=== PATIENT | male | born 1965 | race African-American/Black ===

== ENCOUNTER 2016-07-29 11:27 | Inpatient (IN) | payer OTHER ==
[2016-07-29 11:31] VITALS: BMI 28.7
--- NOTE | 2016-07-29 13:43 | HP ---
COWS - Scale Resting Pulse: 0= [place] 80 or Below Sweatin= Chills/Flushing Restless Observation: 1= Difficult to Sit Still Pupil Size: 0= Normal to Room Light Bone or Joint Aches: 2= Severe Diffuse Aches Runny Nose/ Eye Tearin= Nasal Congestion GI Upset > 30mins: 2= Nausea/Diarrhea Tremor Observation: 2= Slight Tremor Visible Yawning Observation: 2= >3x During Session Anxiety or Irritability: 2=Irritable/Anxious Goose Flesh Skin: 0=Smooth Skin COWS Score: 13 CIWA Score - CIWA Score Nausea/Vomitin-No Nausea/No Vomiting Muscle Tremors: 4-Moderate,w/Arms Extend Anxiety: 3 Agitation: 4-Moderately Restless Paroxysmal Sweats: 3 Orientation: 0-Oriented Tacttile Disturbances: 0-None Auditory Disturbances: 0-None Visual Disturbances: 0-None Headache: 0-None Present CIWA-Ar Total Score: 14 Admission ROS S - HPI Chief Complaint: I am to detox. Allergies/Adverse Reactions: Allergies Allergy/AdvReac Type Severity Reaction Status Date / Time No Known Allergies Allergy Verified 07/29/16 13:13 History of Present Illness: Pt is a 50yr old male with a history of alcohol and heroin dependence seeking detox for treatment. pt has a h/o blood clot in right side of neck back in 2009; pt was hospitalized at [facility] pt was then regulated and placed on coumadin. NOw on 06/30/16 pt found a hard lump on left abdomen went to ED, his INR was " out of wack" not WNL, Heparin drip started to regulate INR pt again placed on on coumadin 10mg Qhs. pt has own MD for follow up on INR levels at [facility]. Dr. Raya Exam Limitations: No Limitations - Ebola screening Have you traveled outside of the country in the last 21 days: No Have you had contact with anyone from an Ebola affected area: No Have you been sick,other than usual withdrawal symptoms: No Do you have a fever: No - Review of Systems Constitutional: Chills, Diaphoresis, Night Sweats EENT: reports: No Symptoms Reported Respiratory: reports: No Symptoms reported Cardiac: reports: No Symptoms Reported GI: reports: Poor Appetite, Poor Fluid Intake : reports: No Symptoms Reported Musculoskeletal: reports: No Symptoms Reported (right knee), Joint Pain Integumentary: reports: Flushing Neuro: reports: Tingling, Tremors Endocrine: reports: Excessive Sweating, Flushing, Intolerance to Cold, Intolerance to Heat Hematology: reports: No Symptoms Reported, Blood Clots (to right side of neck on 2009; on coumadin 10mg qhs), Other (receiving coumadin 10mg daily.) Psychiatric: reports: Judgement Intact, Mood/Affect Appropiate, Orientated x3, Agitated, Anxious Other Systems: Reviewed and Negative Patient History - Patient Medical History Hx Asthma: No Hx Chronic Obstructive Pulmonary Disease (COPD): No Hx Cancer: No Hx Cardiac Disorders: No Hx Congestive Heart Failure: No Hx Hypertension: No Hx Hypercholesterolemia: No Hx Pacemaker: No HX Cerebrovascular Accident: No Hx Seizures: No Hx Dementia: No Hx Diabetes: No Hx Gastrointestinal Disorders: No Hx Liver Disease: No Hx Genitourinary Disorders: No Hx Sexually Transmitted Disorders: No Hx Renal Disease (ESRD): No Hx Thyroid Disease: No Hx Human Immunodeficiency Virus (HIV): No (negative) Hx Hepatitis C: No (negative) Hx Depression: No Hx Suicide Attempt: No Hx Bipolar Disorder: No Hx Schizophrenia: No Other Medical History: anxiety - Patient Surgical History Past Surgical History: Yes Hx Neurologic Surgery: No Hx Cataract Extraction: No Hx Cardiac Surgery: No Hx Lung Surgery: No Hx Breast Surgery: No Hx Breast Biopsy: No Hx Abdominal Surgery: No Hx Appendectomy: No Hx Cholecystectomy: No Hx Genitourinary Surgery: No Hx Section: No Hx Orthopedic Surgery: No Anesthesia Reaction: No - PPD History Previous Implant?: Yes Documented Results: Negative w/o proof Date: 09/18/14 PPD to be Administered?: Yes - Reproductive History Patient is a Female of Child Bearing Age (11 -55 yrs old): No - Smoking Cessation Smoking history: Current every day smoker Have you smoked in the past 12 months: Yes Aproximately how many cigarettes per day: 20 Hx Chewing Tobacco Use: No Initiated information on smoking cessation: Yes 'Breaking Loose' booklet given: 07/29/16 - Substance & Tx. History Hx Alcohol Use: Yes Hx Substance Use: Yes Substance Use Type: Alcohol, Heroin Hx Substance Use Treatment: Yes - Substances Abused Alcohol-beer/aliza Route: Oral Frequency: Daily Amount used: 3 (16 oz.)/1/2 pt. Age of first use: 12 Date of Last Use: 07/29/16 Heroin Route: Inhalation Frequency: Daily Amount used: 4 bags daily Age of first use: 23 Date of Last Use: 07/28/16 Family Disease History - Family Disease History Family Disease History: Heart Disease: Mother, Other: Father (DEPENDENT ON ETOH AND ) Admission Physical Exam [facility] - Vital Signs Vital Signs: Vital Signs - 24 hr 07/29/16 11:30 Temperature 97.1 F L Pulse Rate 71 Respiratory 18 Rate Blood Pressure 91/58 - Physical General Appearance: Yes: Appropriately Dressed, Moderate Distress, Tremorous, Irritable, Sweating, Anxious HEENTM: Yes: Normal Voice, Nasal Congestion, Rhinorrhea Respiratory: Yes: Lungs Clear, Normal Breath Sounds, No Respiratory Distress Neck: Yes: No masses,lesions,Nodules Breast: Yes: Within Normal Limits Cardiology: Yes: Regular Rhythm, Regular Rate, S1, S2 Abdominal: Yes: Normal Bowel Sounds, Non Tender, Soft Genitourinary: Yes: Within Normal Limits Back: Yes: Normal Inspection Musculoskeletal: Yes: full range of Motion Extremities: Yes: Normal Capillary Refill, Non-Tender, Tremors Neurological: Yes: Fully Oriented, Alert, Normal Response Integumentary: Yes: Normal Color, Diaphoresis Lymphatic: Yes: Within Normal Limits - Diagnostic (1) Alcohol dependence with uncomplicated withdrawal Current Visit: Yes Status: Chronic (2) Crack cocaine use Current Visit: Yes Status: Chronic (3) Nicotine dependence Current Visit: Yes Status: Chronic Qualifiers: Nicotine product type: cigarettes Substance use status: uncomplicated Qualified Code(s): F17.210 - Nicotine dependence, cigarettes, uncomplicated (4) Opioid dependence with withdrawal Current Visit: Yes Status: Chronic (5) H/O blood clots Current Visit: No Status: Chronic Comment: currently on 10mg of coumadin last INR is 1.5 as per pt Cleared for Admission S - Detox or Rehab [facility] Level of Care: Medically Managed Detox Regimen/Protocol: Methadone/Librium S Breath Alcohol Content Breath Alcohol Content: 0 Urine Drug Screen - Results Drug Screen Negative: No Urine Drug Screen Results: GEORGE-Cocaine, OPI-Opiates
[2016-07-29] MEDS ORDERED: MAG HYDROX/AL HYDROX/SIMETH 30 ML UNIT-DOSE CUP PO PRN (14:02)
[2016-07-29] MEDS ORDERED: diphenhydrAMINE HCL 50 MG CAPSULE PO PRN (14:02)
[2016-07-29] MEDS ORDERED: chlordiazePOXIDE HCL 25 MG CAPSULE PO PRN (14:02)
[2016-07-29] MEDS ORDERED: LOPERAMIDE HCL 2 MG CAPSULE PO PRN (14:02)
[2016-07-29] MEDS ORDERED: MENTHOL/PHENOL 1 EACH UD MM PRN (14:02)
[2016-07-29] MEDS ORDERED: ACETAMINOPHEN 325 MG TABLET (FP) PO PRN (14:02)
[2016-07-29] MEDS ORDERED: P-EPHED 60MG/TRIPROLIDI 2.5MG TABLET PO PRN (14:02)
[2016-07-29] MEDS ORDERED: hydrOXYzine PAMOATE 50 MG CAPSULE (FP) PO PRN (14:02)
[2016-07-29] MEDS ORDERED: MAGNESIUM CITRATE 300 ML BOTTLE PO PRN (14:02)
[2016-07-29] MEDS ORDERED: guaiFENesin/D-METHORPHAN HB 10 ML UNIT-DOSE CUPS PO PRN (14:02)
[2016-07-29] MEDS ORDERED: MAGNESIUM HYDROX 2400MG/30ML ORAL SUSPENSION 30 ML CUP PO PRN (14:02)
[2016-07-29] MEDS ORDERED: chlordiazePOXIDE HCL 25 MG CAPSULE PO ONE (14:10)
[2016-07-29] MEDS ORDERED: METHADONE HCL 10 MG TABLET (FOR DETOX USE ONLY) PO ONE ×2 (14:11→23:00)
[2016-07-29 15:38] LABS: INR 1.54 (0.82-1.09); PROTHROMBIN TIME (PATIENT) 17.1 SEC (9.98-11.88)
--- NOTE | 2016-07-29 15:50 | EKG ---
Test Reason : Blood Pressure : / mmHG Vent. Rate : 056 BPM Atrial Rate : 056 BPM P-R Int : 146 ms QRS Dur : 078 ms QT Int : 420 ms P-R-T Axes : 038 033 035 degrees QTc Int : 405 ms SINUS BRADYCARDIA OTHERWISE NORMAL ECG NO PREVIOUS ECGS AVAILABLE Confirmed by SAIDA GARCIA MD ([id number]) on 07/29/2016 3:50:22 PM Referred By: Confirmed By:SAIDA GARCIA MD
[2016-07-29] MEDS: chlordiazePOXIDE HCL 25 MG CAPSULE PO SCH ×2 (17:27→22:57)
[2016-07-29] MEDS: WARFARIN NA 10 MG TABLET (FP) PO SCH (17:27)
[2016-07-29 20:20] LABS: MCH 28.9 pg (25.7-33.7); MCHC 33.1 g/dl (32.0-35.9); MEAN CELL VOLUME 87.2 fl (80-96); MEAN PLT VOLUME 8.7 fl (7.5-11.1); PLATELET COUNT 230 K/MM3 (134-434); RDW 15.8 % (11.9-15.9); WHITE BLOOD COUNT 5.8 K/mm3 (4.0-10.0)
[2016-07-29 20:46] LABS: ALBUMIN 3.5 g/dl (3.4-5.0); CALCIUM 8.3 mg/dL (8.5-10.1); CREATININE 1.6 mg/dL (0.7-1.3)
[2016-07-29 20:49] LABS: BILIRUBIN,TOTAL 0.7 mg/dL (0.2-1.0); TOT PROT 7.5 g/dl (6.4-8.2)
[2016-07-29 22:36] LABS: URINE APPEARANCE CLEAR; URINE BILIRUBIN NEGATIVE (NEGATIVE); URINE BLOOD NEGATIVE (NEGATIVE); URINE COLOR YELLOW; URINE GLUCOSE (UA) NEGATIVE (NEGATIVE); URINE KETONE NEGATIVE (NEGATIVE); URINE LEUK ESTERASE NEGATIVE (NEGATIVE); URINE NITRITE NEGATIVE (NEGATIVE); URINE UROBILINOGEN 2.0 E.U/dl E.U./dl (0.2-1.0)
[2016-07-29 22:40] LABS: URINE PROTEIN 1+ (NEGATIVE)
[2016-07-29 22:48] LABS: URINE MUCUS FEW; URINE RBC 1 /hpf (0-3); URINE WBC 5 /hpf (3-5)
[2016-07-29] MEDS: THIAMINE HCL 100 MG TABLET (FP) PO SCH (22:57)
[2016-07-30] MEDS: chlordiazePOXIDE HCL 25 MG CAPSULE PO SCH ×4 (05:28→22:34)
[2016-07-30] MEDS ORDERED: METHADONE HCL 10 MG TABLET (FOR DETOX USE ONLY) PO SCH (10:00)
[2016-07-30 10:37] LABS: HIV 1 & 2 AB NEGATIVE; HIV 1 AGp24 NEGATIVE
[2016-07-30] MEDS: PRENATAL VITAMINS W/ FOLIC ACID TABLET (FP) PO SCH (10:39)
--- NOTE | 2016-07-30 14:37 | PN ---
[facility] CIWA - CIWA Score Nausea/Vomitin-Mild Nausea/No Vomiting Muscle Tremors: 4-Moderate,w/Arms Extend Anxiety: 1-Mildly Anxious Agitation: 2 Paroxysmal Sweats: 2 Orientation: 0-Oriented Tacttile Disturbances: 3-Moderate Itch/Numb/Burn Auditory Disturbances: 0-None Visual Disturbances: 1-Very Mild Sensitivity Headache: 0-None Present CIWA-Ar Total Score: 14 S COWS - Scale Resting Pulse: 0= [place] 80 or Below Sweatin= Chills/Flushing Restless Observation: 1= Difficult to Sit Still Pupil Size: 1= Pupils >than Normal Bone or Joint Aches: 1= Mild Discomfort Runny Nose/ Eye Tearin= Nasal Congestion GI Upset > 30mins: 2= Nausea/Diarrhea Tremor Observation of Outstretched Hands: 2= Slight Tremor Visible Yawning Observation: 1= 1-2x During Session Anxiety or Irritability: 2=Irritable/Anxious Goose Flesh Skin: 3=Piloerection COWS Score: 15 [facility] Progress Note (SOAP) Subjective: Diarrhea, Tremors, Fatigue. Objective: PT. A & O X 3. 07/30/16 14:34 Vital Signs Temperature 95.7 F L 07/30/16 13:59 Pulse Rate 80 07/30/16 13:59 Respiratory Rate 20 07/30/16 13:59 Blood Pressure 108/68 07/30/16 13:59 O2 Sat by Pulse Oximetry (%) Laboratory Last Values WBC 5.8 K/mm3 (4.0-10.0) 07/29/16 14:00 RBC 4.72 M/mm3 (4.00-5.60) 07/29/16 14:00 Hgb 13.6 GM/dL (11.7-16.9) 07/29/16 14:00 Hct 41.1 % (35.4-49) 07/29/16 14:00 MCV 87.2 fl (80-96) 07/29/16 14:00 MCHC 33.1 g/dl (32.0-35.9) 07/29/16 14:00 RDW 15.8 % (11.9-15.9) 07/29/16 14:00 Plt Count 230 K/MM3 (134-434) 07/29/16 14:00 MPV 8.7 fl (7.5-11.1) 07/29/16 14:00 INR 1.54 (0.82-1.09) H 07/29/16 14:00 Sodium 139 mmol/L (136-145) 07/29/16 14:00 Potassium 4.0 mmol/L (3.5-5.1) 07/29/16 14:00 Chloride 102 mmol/L (98-107) 07/29/16 14:00 Carbon Dioxide 28 mmol/L (21-32) 07/29/16 14:00 Anion Gap 9 (8-16) 07/29/16 14:00 BUN 16 mg/dL (7-18) 07/29/16 14:00 Creatinine 1.6 mg/dL (0.7-1.3) H 07/29/16 14:00 Creat Clearance w eGFR 45.62 (>60) 07/29/16 14:00 Random Glucose 105 mg/dL (74-106) D 07/29/16 14:00 Calcium 8.3 mg/dL (8.5-10.1) L 07/29/16 14:00 Total Bilirubin 0.7 mg/dL (0.2-1.0) D 07/29/16 14:00 AST 10 U/L (15-37) L 07/29/16 14:00 ALT 21 U/L (12-78) D 07/29/16 14:00 Alkaline Phosphatase 66 U/L (45-117) 07/29/16 14:00 Total Protein 7.5 g/dl (6.4-8.2) 07/29/16 14:00 Albumin 3.5 g/dl (3.4-5.0) 07/29/16 14:00 Urine Color Yellow 07/29/16 22:00 Urine Appearance Clear 07/29/16 22:00 Urine pH 5.0 (5.0-8.0) 07/29/16 22:00 Ur Specific [place] 1.027 (1.001-1.035) 07/29/16 22:00 Urine Protein 1+ (NEGATIVE) H 07/29/16 22:00 Urine Glucose (UA) Negative (NEGATIVE) 07/29/16 22:00 Urine Ketones Negative (NEGATIVE) 07/29/16 22:00 Urine Blood Negative (NEGATIVE) 07/29/16 22:00 Urine Nitrite Negative (NEGATIVE) 07/29/16 22:00 Urine Bilirubin Negative (NEGATIVE) 07/29/16 22:00 Urine Urobilinogen 2.0 e.u/dl E.U./dl (0.2-1.0) 07/29/16 22:00 Ur Leukocyte Esterase Negative (NEGATIVE) 07/29/16 22:00 Urine RBC 1 /hpf (0-3) 07/29/16 22:00 Urine WBC 5 /hpf (3-5) 07/29/16 22:00 Ur Epithelial Cells Rare /hpf (FEW) 07/29/16 22:00 Urine Mucus Few 07/29/16 22:00 RPR Titer Nonreactive (NONREACTIVE) 07/29/16 14:00 HIV 1&2 Antibody Screen Negative 07/29/16 14:00 HIV P24 Antigen Negative 07/29/16 14:00 LABS NOTED. Assessment: 07/30/16 14:35 WITHDRAWAL SYMPTOMS. Plan: CONTINUE DETOX. D/C MAGNESIUM PRN ORDERS. ADVISED PATIENT TO FOLLOW-UP WITH UNBUNDLER / REHAB MEDICAL PROVIDER AFTER DISCHARGE FROM DETOX FOR GENERAL MEDICAL ASSESSMENT AND FOR ANY ABNORMAL ADMISSION LAB VALUES.
--- NOTE | 2016-07-30 15:46 | CONSULT ---
[facility] Psychiatric Consult - Data Date of interview: 07/30/16 Admission source: [facility] Identifying data: Readmission to [facility] for this 50 y/o AA male seeking detox treatment for heroin and cocaine dependence.Patient is single,a father of two,homeless,unemployed and supported on food stamps. Substance Abuse History: Smoking Cessation. Smoking history: Current every day smoker. Have you smoked in the past 12 months: Yes. Aproximately how many cigarettes per day: 20. Hx Chewing Tobacco Use: No. Initiated information on smoking cessation: Yes. 'Breaking Loose' booklet given: 07/29/16. - Substance & Tx. History. Hx Alcohol Use: Yes. Hx Substance Use: Yes. Substance Use Type : Alcohol, Heroin. Hx Substance Use Treatment: Yes. - Substances Abused. Alcohol-beer/aliza. Route: Oral. Frequency: Daily. Amount used: 3 (16 oz.)/1 /2 pt. Age of first use: 12. Date of Last Use: 07/29/16. Heroin. Route: Inhalation. Frequency: Daily. Amount used: 4 bags daily. Age of first use: 23. Date of Last Use: 07/28/16. Confirmed by patient. Medical History: History of pulmonary embolism.On coumadin. Psychiatric History: Patient denies history of psychiatric hospitalizations.Diagnosed with MDD.Prescribed prozac 20 mg/day and vistaril.Mr Maldonado is followed at the [facility] outpatient [facility] program in [facility].No history of suicide attempts. Physical/Sexual Abuse/Trauma History: Patient denies. Additional Comment: Urine Drug Screen Results: GEORGE-Cocaine, OPI-Opiates.Noted. Mental Status Exam - Mental Status Exam Alert and Oriented to: Time, Place, Person Cognitive Function: Good Patient Appearance: Well Groomed Mood: Withdrawn, Anxious, Apprehensive Affect: Mood Congruent Patient Behavior: Fatigued, Appropriate, Cooperative Speech Pattern: Clear Voice Loudness: Normal Thought Process: Goal Oriented Thought Disorder: Not Present Hallucinations: Denies Suicidal Ideation: Denies Homicidal Ideation: Denies Insight/Judgement: Fair Appetite: Fair Muscle strength/Tone: Normal Gait/Station: Normal Psychiatric Findings - Problem List (Graff 1, 2,3) (1) Alcohol dependence with uncomplicated withdrawal Current Visit: Yes Status: Acute (2) Opioid dependence with withdrawal Current Visit: Yes Status: Acute (3) Cocaine dependence Current Visit: Yes Status: Acute (4) Nicotine dependence Current Visit: Yes Status: Acute Qualifiers: Nicotine product type: cigarettes Substance use status: uncomplicated Qualified Code(s): F17.210 - Nicotine dependence, cigarettes, uncomplicated (5) Adjustment disorder with depressed mood Current Visit: Yes Status: Acute (6) Substance induced mood disorder Current Visit: Yes Status: Acute (7) H/O blood clots Current Visit: Yes Status: Chronic Comment: currently on 10mg of coumadin last INR is 1.5 as per pt - Initial Treatment Plan Initial Treatment Plan: Psychoeducation.Detoxification.Medications : prozac 20 mg po daily.Side effects/benefits discussed with the patient.He agrees with this careplan.Observation.INR will be monitored.
[2016-07-30] MEDS: WARFARIN NA 10 MG TABLET (FP) PO SCH (17:43)
[2016-07-30] MEDS: THIAMINE HCL 100 MG TABLET (FP) PO SCH (22:34)
[2016-07-31] MEDS: chlordiazePOXIDE HCL 25 MG CAPSULE PO SCH ×2 (05:56→10:32)
[2016-07-31] MEDS: FLUoxetine HCL 20 MG CAPSULE (FP) PO SCH (10:32)
[2016-07-31] MEDS: METHADONE HCL 5 MG TABLET (FOR DETOX USE ONLY) PO SCH (10:32)
[2016-07-31] MEDS: PRENATAL VITAMINS W/ FOLIC ACID TABLET (FP) PO SCH (10:32)
--- NOTE | 2016-07-31 16:14 | PN ---
[facility] CIWA - CIWA Score Nausea/Vomitin-Mild Nausea/No Vomiting Muscle Tremors: 4-Moderate,w/Arms Extend Anxiety: 3 Agitation: 1-Slight > Activity Paroxysmal Sweats: 2 Orientation: 1-Uncertain about Date Tacttile Disturbances: 2-Mild Itch/Numbness/Burn Auditory Disturbances: 0-None Visual Disturbances: 3-Moderate Sensitivity Headache: 0-None Present CIWA-Ar Total Score: 17 [facility] COWS - Scale Resting Pulse: 0= [place] 80 or Below Sweatin= Chills/Flushing Restless Observation: 0= Sits Still Pupil Size: 0= Normal to Room Light Bone or Joint Aches: 2= Severe Diffuse Aches Runny Nose/ Eye Tearin= Runny Nose/Eyes GI Upset > 30mins: 0= None Tremor Observation of Outstretched Hands: 2= Slight Tremor Visible Yawning Observation: 1= 1-2x During Session Anxiety or Irritability: 2=Irritable/Anxious Goose Flesh Skin: 3=Piloerection COWS Score: 13 S Progress Note (SOAP) Subjective: Fatigue, Sweating, Tremors. Objective: PT. A & O X 2 (DISORIENTED ABOUT DAY / DATE). 07/31/16 16:11 Vital Signs Temperature 98 F 07/31/16 13:33 Pulse Rate 67 07/31/16 13:33 Respiratory Rate 20 07/31/16 13:33 Blood Pressure 103/63 07/31/16 13:33 O2 Sat by Pulse Oximetry (%) Laboratory Last Values WBC 5.8 K/mm3 (4.0-10.0) 07/29/16 14:00 RBC 4.72 M/mm3 (4.00-5.60) 07/29/16 14:00 Hgb 13.6 GM/dL (11.7-16.9) 07/29/16 14:00 Hct 41.1 % (35.4-49) 07/29/16 14:00 MCV 87.2 fl (80-96) 07/29/16 14:00 MCHC 33.1 g/dl (32.0-35.9) 07/29/16 14:00 RDW 15.8 % (11.9-15.9) 07/29/16 14:00 Plt Count 230 K/MM3 (134-434) 07/29/16 14:00 MPV 8.7 fl (7.5-11.1) 07/29/16 14:00 INR 1.54 (0.82-1.09) H 07/29/16 14:00 Sodium 139 mmol/L (136-145) 07/29/16 14:00 Potassium 4.0 mmol/L (3.5-5.1) 07/29/16 14:00 Chloride 102 mmol/L (98-107) 07/29/16 14:00 Carbon Dioxide 28 mmol/L (21-32) 07/29/16 14:00 Anion Gap 9 (8-16) 07/29/16 14:00 BUN 16 mg/dL (7-18) 07/29/16 14:00 Creatinine 1.6 mg/dL (0.7-1.3) H 07/29/16 14:00 Creat Clearance w eGFR 45.62 (>60) 07/29/16 14:00 Random Glucose 105 mg/dL (74-106) D 07/29/16 14:00 Calcium 8.3 mg/dL (8.5-10.1) L 07/29/16 14:00 Total Bilirubin 0.7 mg/dL (0.2-1.0) D 07/29/16 14:00 AST 10 U/L (15-37) L 07/29/16 14:00 ALT 21 U/L (12-78) D 07/29/16 14:00 Alkaline Phosphatase 66 U/L (45-117) 07/29/16 14:00 Total Protein 7.5 g/dl (6.4-8.2) 07/29/16 14:00 Albumin 3.5 g/dl (3.4-5.0) 07/29/16 14:00 Urine Color Yellow 07/29/16 22:00 Urine Appearance Clear 07/29/16 22:00 Urine pH 5.0 (5.0-8.0) 07/29/16 22:00 Ur Specific [place] 1.027 (1.001-1.035) 07/29/16 22:00 Urine Protein 1+ (NEGATIVE) H 07/29/16 22:00 Urine Glucose (UA) Negative (NEGATIVE) 07/29/16 22:00 Urine Ketones Negative (NEGATIVE) 07/29/16 22:00 Urine Blood Negative (NEGATIVE) 07/29/16 22:00 Urine Nitrite Negative (NEGATIVE) 07/29/16 22:00 Urine Bilirubin Negative (NEGATIVE) 07/29/16 22:00 Urine Urobilinogen 2.0 e.u/dl E.U./dl (0.2-1.0) 07/29/16 22:00 Ur Leukocyte Esterase Negative (NEGATIVE) 07/29/16 22:00 Urine RBC 1 /hpf (0-3) 07/29/16 22:00 Urine WBC 5 /hpf (3-5) 07/29/16 22:00 Ur Epithelial Cells Rare /hpf (FEW) 07/29/16 22:00 Urine Mucus Few 07/29/16 22:00 RPR Titer Nonreactive (NONREACTIVE) 07/29/16 14:00 HIV 1&2 Antibody Screen Negative 07/29/16 14:00 HIV P24 Antigen Negative 07/29/16 14:00 LABS NOTED. Assessment: 07/31/16 16:13 WITHDRAWAL SYMPTOMS. Plan: CONTINUE DETOX. ADVISED PATIENT TO FOLLOW-UP WITH CONSTRUCTION EQUIPMENT TECHNICIAN / REHAB MEDICAL PROVIDER AFTER DISCHARGE FROM DETOX FOR GENERAL MEDICAL ASSESSMENT AND FOR ABNORMAL ADMISSION LAB VALUES.
[2016-07-31] MEDS: WARFARIN NA 10 MG TABLET (FP) PO SCH (17:51)
[2016-07-31] MEDS: chlordiazePOXIDE 5 MG CAPSULE PO SCH ×2 (17:51→22:36)
[2016-07-31] MEDS: THIAMINE HCL 100 MG TABLET (FP) PO SCH (22:36)
[2016-07-31] MEDS: NICOTINE POLACRILEX 4 MG GUM BUC PRN (22:42)
[2016-08-01] MEDS: chlordiazePOXIDE 5 MG CAPSULE PO SCH ×2 (06:03→10:35)
[2016-08-01] MEDS: FLUoxetine HCL 20 MG CAPSULE (FP) PO SCH (10:35)
[2016-08-01] MEDS: PRENATAL VITAMINS W/ FOLIC ACID TABLET (FP) PO SCH (10:35)
[2016-08-01] MEDS: METHADONE HCL 5 MG TABLET (FOR DETOX USE ONLY) PO SCH (10:36)
--- NOTE | 2016-08-01 16:42 | PN ---
[facility] Progress Note (SOAP) Subjective: Anxious, sweating, restless, interrupted sleep Objective: 08/01/16 16:39 Last Vital Signs Temp Pulse Resp BP Pulse Ox 98 F 74 20 109/69 08/01/16 14:14 08/01/16 14:14 08/01/16 14:14 08/01/16 14:14 Laboratory Tests 07/29/16 07/29/16 07/29/16 14:00 14:00 14:00 WBC 5.8 RBC 4.72 Hgb 13.6 Hct 41.1 MCV 87.2 MCHC 33.1 RDW 15.8 Plt Count 230 MPV 8.7 INR Sodium 139 Potassium 4.0 Chloride 102 Carbon Dioxide 28 Anion Gap 9 BUN 16 Creatinine 1.6 H Creat Clearance w eGFR 45.62 Random Glucose 105 D Calcium 8.3 L Total Bilirubin 0.7 D AST 10 L ALT 21 D Alkaline Phosphatase 66 Total Protein 7.5 Albumin 3.5 Urine Color Urine Appearance Urine pH Ur Specific [place] Urine Protein Urine Glucose (UA) Urine Ketones Urine Blood Urine Nitrite Urine Bilirubin Urine Urobilinogen Ur Leukocyte Esterase Urine RBC Urine WBC Ur Epithelial Cells Urine Mucus RPR Titer HIV 1&2 Antibody Screen Negative HIV P24 Antigen Negative 07/29/16 07/29/16 07/29/16 14:00 14:00 22:00 WBC RBC Hgb Hct MCV MCHC RDW Plt Count MPV INR 1.54 H Sodium Potassium Chloride Carbon Dioxide Anion Gap BUN Creatinine Creat Clearance w eGFR Random Glucose Calcium Total Bilirubin AST ALT Alkaline Phosphatase Total Protein Albumin Urine Color Yellow Urine Appearance Clear Urine pH 5.0 Ur Specific [place] 1.027 Urine Protein 1+ H Urine Glucose (UA) Negative Urine Ketones Negative Urine Blood Negative Urine Nitrite Negative Urine Bilirubin Negative Urine Urobilinogen 2.0 e.u/dl Ur Leukocyte Esterase Negative Urine RBC 1 Urine WBC 5 Ur Epithelial Cells Rare Urine Mucus Few RPR Titer Nonreactive HIV 1&2 Antibody Screen HIV P24 Antigen Labs noted: BUN 16, serum creatinine 1.6, GFR 45.62, UA: 1+ protein Assessment: 08/01/16 16:41 Withdrawal symptoms Noted with DONAVON Plan: Continue detox DONAVON: encouraged to drink lots of water (provide water pitcher), repeat BMP and UA
[2016-08-01] MEDS: chlordiazePOXIDE HCL 10 MG CAPSULE PO SCH ×2 (17:39→22:26)
[2016-08-01] MEDS: WARFARIN NA 10 MG TABLET (FP) PO SCH (17:39)
[2016-08-01] MEDS: THIAMINE HCL 100 MG TABLET (FP) PO SCH (22:26)
[2016-08-02] MEDS: chlordiazePOXIDE HCL 10 MG CAPSULE PO SCH ×2 (06:12→10:31)
[2016-08-02 09:46] LABS: CALCIUM 8.7 mg/dL (8.5-10.1); CREATININE 1.5 mg/dL (0.7-1.3)
[2016-08-02] MEDS ORDERED: METHADONE HCL 10 MG TABLET (FOR DETOX USE ONLY) PO SCH (10:00)
[2016-08-02] MEDS: FLUoxetine HCL 20 MG CAPSULE (FP) PO SCH (10:31)
[2016-08-02] MEDS: PRENATAL VITAMINS W/ FOLIC ACID TABLET (FP) PO SCH (10:32)
--- NOTE | 2016-08-02 12:32 | PN ---
[facility] Progress Note (SOAP) Subjective: Sweating,interrupted sleep,restless Objective: 08/02/16 12:31 Vital Signs - 8 hr 08/02/16 08/02/16 06:35 09:56 Temperature 97.1 F L 96.2 F L Pulse Rate 64 85 Respiratory 16 18 Rate Blood Pressure 110/70 104/57 Laboratory Last Values WBC 5.8 K/mm3 (4.0-10.0) 07/29/16 14:00 RBC 4.72 M/mm3 (4.00-5.60) 07/29/16 14:00 Hgb 13.6 GM/dL (11.7-16.9) 07/29/16 14:00 Hct 41.1 % (35.4-49) 07/29/16 14:00 MCV 87.2 fl (80-96) 07/29/16 14:00 MCHC 33.1 g/dl (32.0-35.9) 07/29/16 14:00 RDW 15.8 % (11.9-15.9) 07/29/16 14:00 Plt Count 230 K/MM3 (134-434) 07/29/16 14:00 MPV 8.7 fl (7.5-11.1) 07/29/16 14:00 INR 1.54 (0.82-1.09) H 07/29/16 14:00 Sodium 140 mmol/L (136-145) 08/02/16 07:00 Potassium 3.9 mmol/L (3.5-5.1) 08/02/16 07:00 Chloride 105 mmol/L (98-107) 08/02/16 07:00 Carbon Dioxide 27 mmol/L (21-32) 08/02/16 07:00 Anion Gap 8 (8-16) 08/02/16 07:00 BUN 14 mg/dL (7-18) 08/02/16 07:00 Creatinine 1.5 mg/dL (0.7-1.3) H 08/02/16 07:00 Creat Clearance w eGFR 45.62 (>60) 07/29/16 14:00 Random Glucose 111 mg/dL (74-106) H 08/02/16 07:00 Calcium 8.7 mg/dL (8.5-10.1) 08/02/16 07:00 Total Bilirubin 0.7 mg/dL (0.2-1.0) D 07/29/16 14:00 AST 10 U/L (15-37) L 07/29/16 14:00 ALT 21 U/L (12-78) D 07/29/16 14:00 Alkaline Phosphatase 66 U/L (45-117) 07/29/16 14:00 Total Protein 7.5 g/dl (6.4-8.2) 07/29/16 14:00 Albumin 3.5 g/dl (3.4-5.0) 07/29/16 14:00 Urine Color Yellow 07/29/16 22:00 Urine Appearance Clear 07/29/16 22:00 Urine pH 5.0 (5.0-8.0) 07/29/16 22:00 Ur Specific [place] 1.027 (1.001-1.035) 07/29/16 22:00 Urine Protein 1+ (NEGATIVE) H 07/29/16 22:00 Urine Glucose (UA) Negative (NEGATIVE) 07/29/16 22:00 Urine Ketones Negative (NEGATIVE) 07/29/16 22:00 Urine Blood Negative (NEGATIVE) 07/29/16 22:00 Urine Nitrite Negative (NEGATIVE) 07/29/16 22:00 Urine Bilirubin Negative (NEGATIVE) 07/29/16 22:00 Urine Urobilinogen 2.0 e.u/dl E.U./dl (0.2-1.0) 07/29/16 22:00 Ur Leukocyte Esterase Negative (NEGATIVE) 07/29/16 22:00 Urine RBC 1 /hpf (0-3) 07/29/16 22:00 Urine WBC 5 /hpf (3-5) 07/29/16 22:00 Ur Epithelial Cells Rare /hpf (FEW) 07/29/16 22:00 Urine Mucus Few 07/29/16 22:00 RPR Titer Nonreactive (NONREACTIVE) 07/29/16 14:00 HIV 1&2 Antibody Screen Negative 07/29/16 14:00 HIV P24 Antigen Negative 07/29/16 14:00 labs noted Assessment: 08/02/16 12:32 Withdrawal sx. Plan: Continue detox
[2016-08-02 14:17] LABS: URINE APPEARANCE CLEAR; URINE BILIRUBIN NEGATIVE (NEGATIVE); URINE BLOOD NEGATIVE (NEGATIVE); URINE COLOR LTYELLOW; URINE GLUCOSE (UA) NEGATIVE (NEGATIVE); URINE KETONE NEGATIVE (NEGATIVE); URINE NITRITE NEGATIVE (NEGATIVE); URINE PROTEIN NEGATIVE (NEGATIVE); URINE UROBILINOGEN NEGATIVE E.U./dl (0.2-1.0)
[2016-08-02 14:22] LABS: URINE LEUK ESTERASE TRACE (NEGATIVE)
[2016-08-02 14:34] LABS: URINE MUCUS RARE; URINE RBC 1 /hpf (0-3); URINE WBC 12 /hpf (3-5)
[2016-08-02] MEDS: WARFARIN NA 10 MG TABLET (FP) PO SCH (17:45)
[2016-08-02] MEDS: THIAMINE HCL 100 MG TABLET (FP) PO SCH (22:36)
[2016-08-02] MEDS: NICOTINE POLACRILEX 4 MG GUM BUC PRN (23:27)
[2016-08-03] MEDS ORDERED: METHADONE HCL 5 MG TABLET (FOR DETOX USE ONLY) PO SCH (06:00)
--- NOTE | 2016-08-03 09:06 | DS ---
[facility] Detox Discharge Summary Admission Date: 07/29/16 Discharge Date: 08/03/16 - History Present History: Alcohol Dependence, Cocaine Dependence, Opioid Dependence Additional Comments: DETOX COMPLETED. ALERT O X 3. NAD. PT HAS A PMD DR TRIPLETT AT [facility] WHO FOLLOWS PT'S INR PER ADMITTING HX. Pertinent Past History: H/O BLOOD CLOTS - Physical Exam Results Vital Signs: Vital Signs Temperature 97.8 F 08/03/16 06:23 Pulse Rate 66 08/03/16 06:23 Respiratory Rate 16 08/03/16 06:23 Blood Pressure 107/63 08/03/16 06:23 O2 Sat by Pulse Oximetry (%) Pertinent Admission Physical Exam Findings: WITHDRAWAL SX - Treatment Hospital Course: Detox Protocol Followed, Detoxed Safely, Responded well, Discharged Condition Good, Rehab Referral Accepted Patient has Accepted a Rehab Referral to: [facility] - Medication Discharge Medications: Ambulatory Orders Warfarin Na [Coumadin -] 10 mg PO HS 09/16/14 Fluoxetine HCl [Prozac] 20 mg PO DAILY 07/29/16 Hydroxyzine Pamoate [Vistaril -] 25 mg PO BID PRN 07/29/16 - Diagnosis (1) Alcohol dependence with uncomplicated withdrawal Current Visit: Yes Status: Acute (2) Cocaine dependence Current Visit: Yes Status: Acute Qualifiers: Substance use status: uncomplicated Qualified Code(s): F14.20 - Cocaine dependence, uncomplicated (3) Nicotine dependence Current Visit: Yes Status: Acute Qualifiers: Nicotine product type: cigarettes Substance use status: in withdrawal Qualified Code(s): F17.213 - Nicotine dependence, cigarettes, with withdrawal (4) Opioid dependence with withdrawal Current Visit: Yes Status: Acute (5) H/O blood clots Current Visit: Yes Status: Chronic (6) Adjustment disorder with depressed mood Current Visit: Yes Status: Acute (7) Substance induced mood disorder Current Visit: Yes Status: Acute - AMA Did Patient Leave Against Medical Advice: No
[2016-08-03] MEDS: PRENATAL VITAMINS W/ FOLIC ACID TABLET (FP) PO SCH (10:47)
[2016-08-03] MEDS: FLUoxetine HCL 20 MG CAPSULE (FP) PO SCH (10:47)
[2016-08-03] MEDS: NICOTINE POLACRILEX 4 MG GUM BUC PRN (10:56)
[2016-08-03 14:22] VITALS: BP 110/64; PULSE 73; TEMP 98.7
[2016-08-03] MEDS: WARFARIN NA 10 MG TABLET (FP) PO SCH (17:11)
== END 2016-08-03 17:48 | disposition other institution (70) | DRG 774 ==
LOC: YASAS 11:27 → Y3N 14:09
PROVIDERS: ADMIT Internal Medicine; ATTEND Internal Medicine
PROC: HZ2ZZZZ Detoxification Services for Substance Abuse Treatment (ICD-10-PCS; principal; 2016-08-03)
DX: F10.230 Alcohol dependence with withdrawal, uncomplicated (principal); F14.20 Cocaine dependence, uncomplicated; F17.213 Nicotine dependence, cigarettes, with withdrawal; F19.24 Other psychoactive substance dependence with psychoactive substance-induced mood disorder; F43.21 Adjustment disorder with depressed mood; Z86.711 Personal history of pulmonary embolism; Z79.01 Long term (current) use of anticoagulants; Z59.0 Homelessness
CPT/HCPCS: 36415; 80048; 80053; 81003; 81015; 85027; 85610; 86593; 87389; 93005; 93010

== ENCOUNTER 2016-08-03 19:04 | Inpatient (IN) | payer OTHER ==
[2016-08-03] MEDS ORDERED: hydrOXYzine PAMOATE 50 MG CAPSULE (FP) PO PRN (19:48)
--- NOTE | 2016-08-03 20:23 | HP ---
[facility] Rehab Assess/Revision - Admission History Admitted to Rehab from: [facility] Date of Admission to Rehab: 08/03/16 - Findings Detox History & Physical reviewed: Yes Concur with findings: Yes Comments/Additional Findings: TRANSFERRED FROM DETOX TO REHAB ADMISSION PER PROTOCOL
[2016-08-03] MEDS ORDERED: LOPERAMIDE HCL 2 MG CAPSULE PO PRN (20:25)
[2016-08-03] MEDS ORDERED: MAGNESIUM CITRATE 300 ML BOTTLE PO PRN (20:25)
[2016-08-03] MEDS ORDERED: guaiFENesin/D-METHORPHAN HB 10 ML UNIT-DOSE CUPS PO PRN (20:25)
[2016-08-03] MEDS ORDERED: P-EPHED 60MG/TRIPROLIDI 2.5MG TABLET PO PRN (20:25)
[2016-08-03] MEDS ORDERED: MENTHOL/PHENOL 1 EACH UD MM PRN (20:25)
[2016-08-03] MEDS ORDERED: MAG HYDROX/AL HYDROX/SIMETH 30 ML UNIT-DOSE CUP PO PRN (20:25)
[2016-08-03] MEDS ORDERED: ACETAMINOPHEN 325 MG TABLET (FP) PO PRN (20:25)
[2016-08-03] MEDS ORDERED: MAGNESIUM HYDROX 2400MG/30ML ORAL SUSPENSION 30 ML CUP PO PRN (20:25)
[2016-08-03] MEDS: WARFARIN NA 10 MG TABLET (FP) PO SCH (21:15)
[2016-08-03] MEDS: diphenhydrAMINE HCL 50 MG CAPSULE PO PRN (21:15)
[2016-08-03] MEDS: THIAMINE HCL 100 MG TABLET (FP) PO SCH (21:15)
[2016-08-03] MEDS ORDERED: PT OWN MED DRAWER 7, Y5N ONE (23:38)
--- NOTE | 2016-08-04 06:51 | HP ---
Psychiatrist Admission - Data Date of interview: 08/04/16 Admission source: /[facility] Identifying data: This is the first [facility] admission for this 50 years old single Black male, father of 2 children, unemployed on food stamp, homeless Medical History: Significant for Protein S deficiency, history of pulmonary embolism in 2009. 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 Claims at times, he got off the bus 2 stop before and walked. He never sought treatment till a month ago when he saw Dr jones at [facility] and was prescribed Prozac 20 mg po daily and Vistaril 25 mg po BID. Denies previous psychiatric hospitalization or SI/HI Physical/Sexual Abuse/Trauma History: Denies history of emotional, physical or sexual abuse as well as DV relationship Additional Comment: Reports hisory of multiple arrests including one felony conviction. Denies being on parole/probation at present Vital Signs: Vital Signs - 24 hr 08/03/16 08/04/16 18:00 03:30 Temperature 96.7 F L Pulse Rate 66 Respiratory 18 18 Rate Blood Pressure 99/61 Allergies/Adverse Reactions: Allergies Allergy/AdvReac Type Severity Reaction Status Date / Time No Known Allergies Allergy Verified 08/03/16 19:21 Date of last physical exam: 07/29/16 Concur with the findings of this exam: Yes - Substance Abuse/Tx History Hx Alcohol Use: Yes Hx Substance Use: Yes Substance Use Type: Alcohol (Started drinking alcohol at age 12, consumes half a pint of liquor & 3x 16oz of beer daily. Last drink on 07/29/16), Cocaine ( Started smoking crack cocaine at age 23, consumes $60-80 worth daily. Last smoked on 07/30/16), Heroin (Started using heroin at age 23, consumes 4-5 bags daily. Last used on 07/28/16) Hx Substance Use Treatment: Yes (3 previous inpt detox & 2 inpt Rehab([facility]) . Now attends [facility]) - Admission Criteria Previous failed treatment: Yes Poor recovery environment: Yes Comorbidities: Yes Lacks judgement: Yes Mental Status Exam - Mental Status Exam Alert and Oriented to: Time, Person Cognitive Function: Fair Patient Appearance: Well Groomed Mood: Anxious Affect: Constricted Patient Behavior: Cooperative Speech Pattern: Clear Voice Loudness: Normal Thought Process: Intact Hallucinations: Denies Suicidal Ideation: Denies Homicidal Ideation: Denies Insight/Judgement: Poor Sleep: Well Appetite: Good Muscle strength/Tone: Normal Gait/Station: Normal Psychiatric Findings - Problem List ([place] 1, 2,3) (1) Alcohol dependence with uncomplicated withdrawal Current Visit: No Status: Acute (2) Opioid dependence with withdrawal Current Visit: No Status: Acute (3) Cocaine dependence Current Visit: No Status: Acute Qualifiers: Substance use status: uncomplicated Qualified Code(s): F14.20 - Cocaine dependence, uncomplicated (4) Nicotine dependence Current Visit: No Status: Acute Qualifiers: Nicotine product type: cigarettes Substance use status: in withdrawal Qualified Code(s): F17.213 - Nicotine dependence, cigarettes, with withdrawal (5) Anxiety disorder Current Visit: Yes Status: Acute (6) Substance-induced anxiety disorder Current Visit: Yes Status: Acute (7) Protein S deficiency Current Visit: Yes Status: Acute (8) History of pulmonary embolism Current Visit: Yes Status: Acute - Initial Treatment Plan Initial Treatment Plan: 1) Continue Prozac 20 mg po daily. 2) Monitor progress
[2016-08-04] MEDS: PRENATAL VITAMINS W/ FOLIC ACID TABLET (FP) PO SCH (10:00)
[2016-08-04 10:40] LABS: INR 2.02 (0.82-1.09); PROTHROMBIN TIME (PATIENT) 22.5 SEC (9.98-11.88)
[2016-08-04] MEDS: WARFARIN NA 10 MG TABLET (FP) PO SCH (18:00)
[2016-08-04] MEDS: diphenhydrAMINE HCL 50 MG CAPSULE PO PRN (21:38)
[2016-08-04] MEDS: THIAMINE HCL 100 MG TABLET (FP) PO SCH (21:38)
[2016-08-05] MEDS: PRENATAL VITAMINS W/ FOLIC ACID TABLET (FP) PO SCH (10:09)
[2016-08-05] MEDS: hydrOXYzine PAMOATE 50 MG CAPSULE (FP) PO PRN (10:09)
[2016-08-05] MEDS: NICOTINE 21 MG/24 HOURS TOPICAL PATCH TD SCH (10:11)
[2016-08-05] MEDS: WARFARIN NA 10 MG TABLET (FP) PO SCH (18:26)
[2016-08-05] MEDS: diphenhydrAMINE HCL 50 MG CAPSULE PO PRN (21:26)
[2016-08-05] MEDS: THIAMINE HCL 100 MG TABLET (FP) PO SCH (21:26)
[2016-08-06] MEDS: PRENATAL VITAMINS W/ FOLIC ACID TABLET (FP) PO SCH (10:22)
[2016-08-06] MEDS: hydrOXYzine PAMOATE 50 MG CAPSULE (FP) PO PRN (10:23)
[2016-08-06] MEDS: NICOTINE 21 MG/24 HOURS TOPICAL PATCH TD SCH (10:24)
[2016-08-06] MEDS: NICOTINE POLACRILEX 2 MG GUM BUC PRN (10:24)
[2016-08-06] MEDS: WARFARIN NA 10 MG TABLET (FP) PO SCH (17:11)
[2016-08-06] MEDS: THIAMINE HCL 100 MG TABLET (FP) PO SCH (22:04)
[2016-08-07] MEDS: NICOTINE POLACRILEX 2 MG GUM BUC PRN ×2 (10:25→20:15)
[2016-08-07] MEDS: NICOTINE 21 MG/24 HOURS TOPICAL PATCH TD SCH (10:25)
[2016-08-07] MEDS: PRENATAL VITAMINS W/ FOLIC ACID TABLET (FP) PO SCH (10:25)
[2016-08-07] MEDS: WARFARIN NA 10 MG TABLET (FP) PO SCH (17:09)
[2016-08-07] MEDS: hydrOXYzine PAMOATE 50 MG CAPSULE (FP) PO PRN (20:14)
[2016-08-07] MEDS: THIAMINE HCL 100 MG TABLET (FP) PO SCH (23:28)
[2016-08-08] MEDS: PRENATAL VITAMINS W/ FOLIC ACID TABLET (FP) PO SCH (10:15)
[2016-08-08] MEDS: NICOTINE 21 MG/24 HOURS TOPICAL PATCH TD SCH (10:15)
[2016-08-08] MEDS: hydrOXYzine PAMOATE 50 MG CAPSULE (FP) PO PRN ×2 (12:19→17:03)
[2016-08-08] MEDS: WARFARIN NA 10 MG TABLET (FP) PO SCH (17:03)
[2016-08-08] MEDS: THIAMINE HCL 100 MG TABLET (FP) PO SCH (23:32)
[2016-08-09 10:19] LABS: INR 2.09 (0.82-1.09); PROTHROMBIN TIME (PATIENT) 23.3 SEC (9.98-11.88)
[2016-08-09] MEDS: hydrOXYzine PAMOATE 50 MG CAPSULE (FP) PO PRN ×3 (10:37→18:25)
[2016-08-09] MEDS: PRENATAL VITAMINS W/ FOLIC ACID TABLET (FP) PO SCH (10:37)
[2016-08-09] MEDS: NICOTINE 21 MG/24 HOURS TOPICAL PATCH TD SCH (10:38)
[2016-08-09] MEDS: THIAMINE HCL 100 MG TABLET (FP) PO SCH (21:10)
[2016-08-09] MEDS: diphenhydrAMINE HCL 50 MG CAPSULE PO PRN (21:10)
[2016-08-10] MEDS: PRENATAL VITAMINS W/ FOLIC ACID TABLET (FP) PO SCH (10:24)
[2016-08-10] MEDS: NICOTINE 21 MG/24 HOURS TOPICAL PATCH TD SCH (10:25)
[2016-08-10] MEDS: hydrOXYzine PAMOATE 50 MG CAPSULE (FP) PO PRN ×2 (10:27→16:53)
--- NOTE | 2016-08-10 12:06 | PN ---
[facility] Progress Note Note: pt on warfarin 10mg at hs . inr 2.02 on 08/04/16, and 2.09 on 08/09/16. plan inr on 08/13/16.
[2016-08-10] MEDS: WARFARIN NA 10 MG TABLET (FP) PO SCH (17:04)
[2016-08-10] MEDS: THIAMINE HCL 100 MG TABLET (FP) PO SCH (23:09)
[2016-08-11] MEDS: hydrOXYzine PAMOATE 50 MG CAPSULE (FP) PO PRN (08:53)
[2016-08-11] MEDS: PRENATAL VITAMINS W/ FOLIC ACID TABLET (FP) PO SCH (10:20)
[2016-08-11] MEDS: NICOTINE 21 MG/24 HOURS TOPICAL PATCH TD SCH (10:21)
[2016-08-11] MEDS: FLUoxetine HCL 20 MG CAPSULE (FP) PO SCH (12:46)
[2016-08-11] MEDS ORDERED: PT OWN MED DRAWER 7, Y5N ONE (13:06)
[2016-08-11] MEDS: WARFARIN NA 10 MG TABLET (FP) PO SCH (17:09)
[2016-08-11] MEDS: THIAMINE HCL 100 MG TABLET (FP) PO SCH (23:27)
[2016-08-12] MEDS: PRENATAL VITAMINS W/ FOLIC ACID TABLET (FP) PO SCH (10:15)
[2016-08-12] MEDS: FLUoxetine HCL 20 MG CAPSULE (FP) PO SCH (10:15)
[2016-08-12] MEDS: NICOTINE 21 MG/24 HOURS TOPICAL PATCH TD SCH (10:15)
[2016-08-12] MEDS ORDERED: LIDOCAINE 5% TOPICAL PATCH TP ONE (14:13)
[2016-08-12] MEDS: WARFARIN NA 10 MG TABLET (FP) PO SCH (17:11)
[2016-08-12] MEDS: THIAMINE HCL 100 MG TABLET (FP) PO SCH (22:55)
[2016-08-13 10:19] LABS: INR 1.68 (0.82-1.09); PROTHROMBIN TIME (PATIENT) 18.7 SEC (9.98-11.88)
[2016-08-13] MEDS: FLUoxetine HCL 20 MG CAPSULE (FP) PO SCH (10:28)
[2016-08-13] MEDS: NICOTINE 21 MG/24 HOURS TOPICAL PATCH TD SCH (10:28)
[2016-08-13] MEDS: LIDOCAINE 5% TOPICAL PATCH TP SCH (10:28)
[2016-08-13] MEDS: PRENATAL VITAMINS W/ FOLIC ACID TABLET (FP) PO SCH (10:28)
[2016-08-13] MEDS: WARFARIN NA 10 MG TABLET (FP) PO SCH (17:19)
[2016-08-13] MEDS: diphenhydrAMINE HCL 50 MG CAPSULE PO PRN (20:03)
[2016-08-13] MEDS: THIAMINE HCL 100 MG TABLET (FP) PO SCH (23:44)
[2016-08-14] MEDS: hydrOXYzine PAMOATE 50 MG CAPSULE (FP) PO PRN ×2 (08:51→17:42)
[2016-08-14] MEDS: FLUoxetine HCL 20 MG CAPSULE (FP) PO SCH (10:19)
[2016-08-14] MEDS: NICOTINE 21 MG/24 HOURS TOPICAL PATCH TD SCH (10:19)
[2016-08-14] MEDS: PRENATAL VITAMINS W/ FOLIC ACID TABLET (FP) PO SCH (10:19)
[2016-08-14] MEDS: LIDOCAINE 5% TOPICAL PATCH TP SCH (10:20)
[2016-08-14] MEDS: WARFARIN NA 10 MG TABLET (FP) PO SCH (17:42)
[2016-08-14] MEDS: THIAMINE HCL 100 MG TABLET (FP) PO SCH (22:11)
[2016-08-14] MEDS ORDERED: PT OWN MED DRAWER 7, Y5N ONE (22:14)
[2016-08-15] MEDS: NICOTINE 21 MG/24 HOURS TOPICAL PATCH TD SCH (10:26)
[2016-08-15] MEDS: FLUoxetine HCL 20 MG CAPSULE (FP) PO SCH (10:26)
[2016-08-15] MEDS: PRENATAL VITAMINS W/ FOLIC ACID TABLET (FP) PO SCH (10:26)
[2016-08-15] MEDS: LIDOCAINE 5% TOPICAL PATCH TP SCH (10:28)
[2016-08-15] MEDS: hydrOXYzine PAMOATE 50 MG CAPSULE (FP) PO PRN ×2 (12:41→18:08)
[2016-08-15] MEDS ORDERED: PT OWN MED DRAWER 7, Y5N ONE (18:06)
[2016-08-15] MEDS: WARFARIN NA 10 MG TABLET (FP) PO SCH (18:07)
[2016-08-15] MEDS: THIAMINE HCL 100 MG TABLET (FP) PO SCH (22:09)
[2016-08-16] MEDS: hydrOXYzine PAMOATE 50 MG CAPSULE (FP) PO PRN ×3 (08:24→21:51)
[2016-08-16] MEDS: FLUoxetine HCL 20 MG CAPSULE (FP) PO SCH (11:16)
[2016-08-16] MEDS: PRENATAL VITAMINS W/ FOLIC ACID TABLET (FP) PO SCH (11:16)
[2016-08-16] MEDS: LIDOCAINE 5% TOPICAL PATCH TP SCH (11:16)
[2016-08-16] MEDS: NICOTINE 21 MG/24 HOURS TOPICAL PATCH TD SCH (11:17)
[2016-08-16] MEDS: THIAMINE HCL 100 MG TABLET (FP) PO SCH (21:51)
[2016-08-17] MEDS: hydrOXYzine PAMOATE 50 MG CAPSULE (FP) PO PRN (07:26)
[2016-08-17] MEDS: NICOTINE 21 MG/24 HOURS TOPICAL PATCH TD SCH (10:20)
[2016-08-17] MEDS: FLUoxetine HCL 20 MG CAPSULE (FP) PO SCH (10:21)
[2016-08-17] MEDS: PRENATAL VITAMINS W/ FOLIC ACID TABLET (FP) PO SCH (10:21)
[2016-08-17] MEDS: LIDOCAINE 5% TOPICAL PATCH TP SCH (10:21)
--- NOTE | 2016-08-17 16:41 | PN ---
[facility] Progress Note Note: continue coumadin 10 mg repeat inr 08/23/16
[2016-08-17] MEDS: WARFARIN NA 10 MG TABLET (FP) PO SCH (17:44)
[2016-08-17] MEDS ORDERED: FLUoxetine HCL 20 MG CAPSULE (FP) PO SCH (17:45)
[2016-08-17] MEDS: THIAMINE HCL 100 MG TABLET (FP) PO SCH (23:50)
[2016-08-18] MEDS: hydrOXYzine PAMOATE 50 MG CAPSULE (FP) PO PRN ×3 (06:33→22:47)
[2016-08-18] MEDS: LIDOCAINE 5% TOPICAL PATCH TP SCH (10:26)
[2016-08-18] MEDS: FLUoxetine HCL 20 MG CAPSULE (FP) PO SCH (10:26)
[2016-08-18] MEDS: PRENATAL VITAMINS W/ FOLIC ACID TABLET (FP) PO SCH (10:26)
[2016-08-18] MEDS: NICOTINE 21 MG/24 HOURS TOPICAL PATCH TD SCH (10:27)
[2016-08-18] MEDS: WARFARIN NA 10 MG TABLET (FP) PO SCH (17:03)
[2016-08-18] MEDS: BUPRENORPHINE/NALOXONE 2 MG/0.5 MG FILM PACKET SL SCH (17:04)
[2016-08-18] MEDS: THIAMINE HCL 100 MG TABLET (FP) PO SCH (22:37)
[2016-08-19] MEDS: BUPRENORPHINE/NALOXONE 2 MG/0.5 MG FILM PACKET SL SCH ×2 (06:30→17:04)
[2016-08-19] MEDS: hydrOXYzine PAMOATE 50 MG CAPSULE (FP) PO PRN ×2 (06:33→23:28)
[2016-08-19] MEDS: PRENATAL VITAMINS W/ FOLIC ACID TABLET (FP) PO SCH (10:13)
[2016-08-19] MEDS: FLUoxetine HCL 20 MG CAPSULE (FP) PO SCH (10:13)
[2016-08-19] MEDS: NICOTINE 21 MG/24 HOURS TOPICAL PATCH TD SCH (10:13)
[2016-08-19] MEDS: LIDOCAINE 5% TOPICAL PATCH TP SCH (10:14)
[2016-08-19 10:47] LABS: INR 1.47 (0.82-1.09); PROTHROMBIN TIME (PATIENT) 16.3 SEC (9.98-11.88)
[2016-08-19] MEDS: WARFARIN NA PO SCH (17:04)
[2016-08-19] MEDS ORDERED: PT OWN MED DRAWER 7, Y5N ONE (17:04)
[2016-08-19] MEDS ORDERED: WARFARIN NA 10 MG TABLET (FP) PO SCH (18:00)
[2016-08-19] MEDS: THIAMINE HCL 100 MG TABLET (FP) PO SCH (22:57)
[2016-08-20] MEDS: hydrOXYzine PAMOATE 50 MG CAPSULE (FP) PO PRN ×2 (06:24→22:03)
[2016-08-20] MEDS: BUPRENORPHINE/NALOXONE 2 MG/0.5 MG FILM PACKET SL SCH ×2 (06:24→17:50)
[2016-08-20] MEDS: LIDOCAINE 5% TOPICAL PATCH TP SCH (10:26)
[2016-08-20] MEDS: PRENATAL VITAMINS W/ FOLIC ACID TABLET (FP) PO SCH (10:26)
[2016-08-20] MEDS: NICOTINE 21 MG/24 HOURS TOPICAL PATCH TD SCH (10:27)
[2016-08-20] MEDS: FLUoxetine HCL 20 MG CAPSULE (FP) PO SCH (10:28)
[2016-08-20 11:39] LABS: INR 1.54 (0.82-1.09); PROTHROMBIN TIME (PATIENT) 17.1 SEC (9.98-11.88)
[2016-08-20] MEDS ORDERED: PT OWN MED DRAWER 7, Y5N ONE (17:09)
[2016-08-20] MEDS: WARFARIN NA PO SCH (17:50)
[2016-08-20] MEDS: THIAMINE HCL 100 MG TABLET (FP) PO SCH (21:51)
[2016-08-21] MEDS: hydrOXYzine PAMOATE 50 MG CAPSULE (FP) PO PRN ×2 (06:23→23:29)
[2016-08-21] MEDS: BUPRENORPHINE/NALOXONE 2 MG/0.5 MG FILM PACKET SL SCH ×2 (06:24→17:04)
[2016-08-21] MEDS: PRENATAL VITAMINS W/ FOLIC ACID TABLET (FP) PO SCH (10:26)
[2016-08-21] MEDS: FLUoxetine HCL 20 MG CAPSULE (FP) PO SCH (10:26)
[2016-08-21] MEDS: LIDOCAINE 5% TOPICAL PATCH TP SCH (10:26)
[2016-08-21] MEDS: NICOTINE 21 MG/24 HOURS TOPICAL PATCH TD SCH (10:27)
[2016-08-21] MEDS: WARFARIN NA PO SCH (17:04)
[2016-08-21] MEDS ORDERED: PT OWN MED DRAWER 7, Y5N ONE (17:05)
[2016-08-21] MEDS: THIAMINE HCL 100 MG TABLET (FP) PO SCH (23:09)
[2016-08-22] MEDS: hydrOXYzine PAMOATE 50 MG CAPSULE (FP) PO PRN ×3 (06:13→22:24)
[2016-08-22] MEDS: BUPRENORPHINE/NALOXONE 2 MG/0.5 MG FILM PACKET SL SCH ×2 (06:13→17:03)
[2016-08-22] MEDS: LIDOCAINE 5% TOPICAL PATCH TP SCH (10:02)
[2016-08-22] MEDS: PRENATAL VITAMINS W/ FOLIC ACID TABLET (FP) PO SCH (10:02)
[2016-08-22] MEDS: NICOTINE 21 MG/24 HOURS TOPICAL PATCH TD SCH (10:02)
[2016-08-22] MEDS: FLUoxetine HCL 20 MG CAPSULE (FP) PO SCH (10:02)
[2016-08-22] MEDS ORDERED: PT OWN MED DRAWER 7, Y5N ONE (17:02)
[2016-08-22] MEDS: WARFARIN NA PO SCH (17:02)
[2016-08-22] MEDS: THIAMINE HCL 100 MG TABLET (FP) PO SCH (23:29)
[2016-08-23] MEDS: hydrOXYzine PAMOATE 50 MG CAPSULE (FP) PO PRN ×2 (06:19→14:02)
[2016-08-23] MEDS: BUPRENORPHINE/NALOXONE 2 MG/0.5 MG FILM PACKET SL SCH ×2 (06:19→18:00)
[2016-08-23 10:18] LABS: INR 2.04 (0.82-1.09); PROTHROMBIN TIME (PATIENT) 22.8 SEC (9.98-11.88)
[2016-08-23] MEDS: FLUoxetine HCL 20 MG CAPSULE (FP) PO SCH (10:42)
[2016-08-23] MEDS: PRENATAL VITAMINS W/ FOLIC ACID TABLET (FP) PO SCH (10:42)
[2016-08-23] MEDS: NICOTINE 21 MG/24 HOURS TOPICAL PATCH TD SCH (10:43)
[2016-08-23] MEDS: LIDOCAINE 5% TOPICAL PATCH TP SCH (10:44)
[2016-08-23] MEDS ORDERED: PT OWN MED DRAWER 7, Y5N ONE (16:35)
[2016-08-23] MEDS: WARFARIN NA PO SCH (18:00)
[2016-08-23] MEDS: THIAMINE HCL 100 MG TABLET (FP) PO SCH (21:57)
[2016-08-24] MEDS: hydrOXYzine PAMOATE 50 MG CAPSULE (FP) PO PRN (06:15)
[2016-08-24] MEDS: BUPRENORPHINE/NALOXONE 2 MG/0.5 MG FILM PACKET SL SCH ×2 (06:15→17:07)
[2016-08-24] MEDS: FLUoxetine HCL 20 MG CAPSULE (FP) PO SCH (10:28)
[2016-08-24] MEDS: NICOTINE 21 MG/24 HOURS TOPICAL PATCH TD SCH (10:29)
[2016-08-24] MEDS: PRENATAL VITAMINS W/ FOLIC ACID TABLET (FP) PO SCH (10:29)
[2016-08-24] MEDS: LIDOCAINE 5% TOPICAL PATCH TP SCH (10:30)
[2016-08-24] MEDS ORDERED: PT OWN MED DRAWER 7, Y5N ONE (17:07)
[2016-08-24] MEDS: WARFARIN NA PO SCH (17:07)
[2016-08-24] MEDS: THIAMINE HCL 100 MG TABLET (FP) PO SCH (23:51)
[2016-08-25] MEDS: BUPRENORPHINE/NALOXONE 2 MG/0.5 MG FILM PACKET SL SCH ×2 (06:30→17:37)
[2016-08-25] MEDS: hydrOXYzine PAMOATE 50 MG CAPSULE (FP) PO PRN ×2 (06:30→10:22)
[2016-08-25 06:54] VITALS: PULSE 59
--- NOTE | 2016-08-25 08:19 | PN ---
Psychiatric Progress Note Vital Signs: Vital Signs Period Temp Pulse Resp BP Sys/Sung Pulse Ox Last 24 Hr 97.7 F 59 18-20 105/60 Date of Session: 08/25/16 Chief Complaint:: Psychiatrist Discharge Note HPI: Patient addressing Alcohol, Opod and Cocaine Dependence comorbid with Nicotine Dependence and Anxiety Disorder ROS: Protein S defifiency, h/o Pulmonary embolism were medically managed Current Medications: Active Medications Generic Name Dose Route Start Last Admin Trade Name Freq PRN Reason Stop Dose Admin Acetaminophen 650 mg 08/03/16 20:25 Tylenol - PO Q4H PRN FEVER OR PAIN Al Hydroxide/Mg Hydroxide 30 ml 08/03/16 20:25 Mylanta Oral Suspension - PO Q6H PRN DYSPEPSIA Buprenorphine/Naloxone 1 each 08/25/16 18:00 Suboxone 2mg/0.5mg Sl Film - SL BID@0600,1800 ARASH Diphenhydramine HCl 50 mg 08/03/16 20:25 08/13/16 20:03 Benadryl - PO 50 mg HSMR1 PRN Administration FOR ITCHING Eucalyptus/Menthol/Phenol/Sorbitol 1 each 08/03/16 20:25 Cepastat Lozenge - MM Q4H PRN SORE THROAT Fluoxetine HCl 20 mg 08/18/16 10:00 08/24/16 10:28 Prozac - PO 20 mg DAILY ARASH Administration Guaifenesin 10 ml 08/03/16 20:25 Robitussin Dm - PO Q6H PRN COUGH Hydroxyzine Pamoate 50 mg 08/03/16 20:25 08/25/16 06:30 Vistaril - PO 50 mg Q4H PRN Administration AGITATION Lidocaine 1 patch 08/13/16 10:00 08/24/16 10:30 Lidoderm Patch - TP 1 patch DAILY ARASH Administration Loperamide HCl 4 mg 08/03/16 20:25 Imodium - PO Q6H PRN DIARRHEA Magnesium Hydroxide 30 ml 08/03/16 20:25 Milk Of Magnesia - PO DAILY PRN CONSTIPATION Nicotine 21 mg 08/05/16 10:00 08/24/16 10:29 Nicoderm Patch - TD 21 mg DAILY ARASH Administration Nicotine Polacrilex 2 mg 08/05/16 13:28 08/07/16 20:15 Nicorette Gum - BUC 2 mg Q2H PRN Administration NICOTINE REPLACEMENT RX Multivit/Folic Acid/Iron 1 tab 08/04/16 10:00 08/24/16 10:29 Vitamins ([facility]) - PO 1 tab DAILY ARASH Administration Pseudoephedrine/Triprolidine 1 combo 08/03/16 20:25 Actifed - PO TID PRN NASAL CONGESTION Thiamine HCl 100 mg 08/03/16 22:00 08/24/16 23:51 Vitamin B1 - PO Not Given HS ARASH Warfarin Sodium 1 mg/ Warfarin 11 mg 08/19/16 18:00 08/24/16 17:07 Sodium 10 mg PO 11 mg DAILY@1800 ARASH Administration Current Side Effect: No Lab tests ordered: Yes Lab tests reviewed: Yes Provider note:: Patient will complete this program on 08/26/16.He has met his treatment goals and will continue his issues in outpatient treatment at [facility]. He verbalized understanding the negative consequences of his addiction and recognized the need to make changes to his life styles in order to maintain sobriety. He responded well to Prozac 20 mg po daily. Script for 30 days supply of that medication will be electronically transmitted to [facility] at [address] [place] [address]. He is stable for discharge on 08/26/16 Total face to face time:: 35 Mental Status Exam - Mental Status Exam Alert and Oriented to: Time, Place, Person Cognitive Function: Fair Patient Appearance: Well Groomed Mood: Hopeful, Euthymic Affect: Appropriate Patient Behavior: Cooperative Speech Pattern: Clear Voice Loudness: Normal Thought Process: Intact Thought Disorder: Not Present Hallucinations: Denies Suicidal Ideation: Denies Homicidal Ideation: Denies Insight/Judgement: Fair Sleep: Fair Appetite: Good Muscle strength/Tone: Normal Gait/Station: Normal Psychiatric Treatment Plan - Problem List (1) Alcohol dependence with uncomplicated withdrawal Current Visit: No (2) Opioid dependence with withdrawal Current Visit: No (3) Cocaine dependence Current Visit: No Qualifiers: Substance use status: uncomplicated Qualified Code(s): F14.20 - Cocaine dependence, uncomplicated (4) Nicotine dependence Current Visit: No Qualifiers: Nicotine product type: cigarettes Substance use status: in withdrawal Qualified Code(s): F17.213 - Nicotine dependence, cigarettes, with withdrawal (5) Anxiety disorder Current Visit: Yes (6) Substance-induced anxiety disorder Current Visit: Yes (7) Protein S deficiency Current Visit: Yes (8) History of pulmonary embolism Current Visit: Yes Initial treatment plan: Patient will be discharged tomorrow and referred to [facility] for outpatient treatment
[2016-08-25] MEDS: FLUoxetine HCL 20 MG CAPSULE (FP) PO SCH (10:22)
[2016-08-25] MEDS: PRENATAL VITAMINS W/ FOLIC ACID TABLET (FP) PO SCH (10:22)
[2016-08-25] MEDS: NICOTINE 21 MG/24 HOURS TOPICAL PATCH TD SCH (10:23)
[2016-08-25] MEDS: LIDOCAINE 5% TOPICAL PATCH TP SCH (10:24)
[2016-08-25] MEDS ORDERED: PT OWN MED DRAWER 7, Y5N ONE (16:57)
[2016-08-25] MEDS: WARFARIN NA PO SCH (17:36)
[2016-08-25] MEDS: THIAMINE HCL 100 MG TABLET (FP) PO SCH (21:40)
[2016-08-26] MEDS: BUPRENORPHINE/NALOXONE 2 MG/0.5 MG FILM PACKET SL SCH (06:36)
[2016-08-26] MEDS: hydrOXYzine PAMOATE 50 MG CAPSULE (FP) PO PRN (06:36)
[2016-08-26 07:01] VITALS: BP 109/62; TEMP 97.6
[2016-08-26] MEDS ORDERED: PT OWN MED DRAWER 7, Y5N ONE (09:47)
[2016-08-26] MEDS: LIDOCAINE 5% TOPICAL PATCH TP SCH (09:48)
[2016-08-26] MEDS: NICOTINE 21 MG/24 HOURS TOPICAL PATCH TD SCH (09:48)
[2016-08-26] MEDS: FLUoxetine HCL 20 MG CAPSULE (FP) PO SCH (09:48)
[2016-08-26] MEDS: PRENATAL VITAMINS W/ FOLIC ACID TABLET (FP) PO SCH (09:48)
== END 2016-08-26 10:17 | disposition home or self-care (01) | DRG 772 ==
LOC: YASAS 19:04 → Y3W 19:05
PROVIDERS: ADMIT Psychiatry & Neurology Psychiatry; ATTEND Psychiatry & Neurology Psychiatry
PROC: HZ42ZZZ Group Counseling for Substance Abuse Treatment, Cognitive-Behavioral (ICD-10-PCS; principal; 2016-08-03)
DX: F11.20 Opioid dependence, uncomplicated (principal); F10.20 Alcohol dependence, uncomplicated; F14.20 Cocaine dependence, uncomplicated; F17.210 Nicotine dependence, cigarettes, uncomplicated; F41.9 Anxiety disorder, unspecified; F19.280 Other psychoactive substance dependence with psychoactive substance-induced anxiety disorder; D68.59 Other primary thrombophilia; Z86.711 Personal history of pulmonary embolism; Z79.01 Long term (current) use of anticoagulants
CPT/HCPCS: 36415; 73070-TC-RT; 85610

== ENCOUNTER 2021-02-25 22:46 | Inpatient (IN) | payer OTHER ==
[2021-02-26 02:12] VITALS: BMI 31.1
[2021-02-26] MEDS ORDERED: BISMUTH SUBSALICYLATE 524 MG/30 ML PO PRN (03:01)
[2021-02-26] MEDS ORDERED: IBUPROFEN 400 MG TABLET (FP) PO PRN (03:01)
[2021-02-26] MEDS ORDERED: MENTHOL/PHENOL 1 EACH UD MM PRN (03:01)
[2021-02-26] MEDS ORDERED: MAG HYDROX/AL HYDROX/SIMETH 30 ML UNIT-DOSE CUP PO PRN (03:01)
[2021-02-26] MEDS ORDERED: ONDANSETRON *ODT* 4 MG TABLET SL PRN (03:01)
[2021-02-26] MEDS ORDERED: MAGNESIUM HYDROX 2400MG/30ML ORAL SUSPENSION 30 ML CUP PO PRN (03:01)
[2021-02-26] MEDS ORDERED: ACETAMINOPHEN 325 MG TABLET (FP) PO PRN ×2 (03:01)
[2021-02-26] MEDS ORDERED: MAGNESIUM CITRATE 300 ML BOTTLE PO PRN (03:01)
[2021-02-26] MEDS ORDERED: NICOTINE POLACRILEX 2 MG GUM BUC PRN (03:01)
[2021-02-26] MEDS ORDERED: methaDONE HCL 10 MG TABLET (FOR DETOX USE ONLY) PO ONE (03:18)
[2021-02-26] MEDS ORDERED: cloNIDine HCL 0.1 MG TABLET PO PRN (03:18)
[2021-02-26] MEDS ORDERED: methaDONE HCL 10 MG TABLET (FOR DETOX USE ONLY) ONE (04:19)
[2021-02-26] MEDS: NICOTINE 14 MG/24 HOURS TOPICAL PATCH TD SCH (11:07)
[2021-02-26] MEDS: PRENATAL VITAMINS W/ FOLIC ACID TABLET (FP) PO SCH (11:07)
[2021-02-26] MEDS: METHOCARBAMOL 500 MG TABLET PO PRN (11:07)
[2021-02-26] MEDS ORDERED: RIVAROXABAN 20 MG TABLET PO SCH (13:00)
[2021-02-26] MEDS: FUROSEMIDE 40 MG TABLET (FP) PO SCH (13:29)
[2021-02-26 15:00] LABS: HIV INTERPRETATION NEGATIVE (NEGATIVE)
[2021-02-26] MEDS: RIVAROXABAN 20 MG TABLET PO SCH (17:32)
[2021-02-26 17:34] LABS: HEMATOCRIT 34.2 % (35.4-49); HEMOGLOBIN 11.5 GM/dL (11.7-16.9); MCH 29.6 pg (25.7-33.7); MCHC 33.6 g/dl (32.0-35.9); MEAN CELL VOLUME 87.9 fl (80-96); MEAN PLT VOLUME 8.2 fl (7.5-11.1); PLATELET COUNT 239 10^3/uL (134-434); RBC 3.89 M/mm3 (4.00-5.60); RDW 14.9 % (11.9-15.9); WHITE BLOOD COUNT 5.5 K/mm3 (4.0-10.0)
[2021-02-26 18:00] LABS: ALBUMIN 3.3 g/dl (3.4-5.0); CALCIUM 8.6 mg/dL (8.5-10.1)
[2021-02-26 18:01] LABS: BLOOD UREA NITROGEN 33.6 mg/dL (7-18)
[2021-02-26 18:04] LABS: CREATININE 1.9 mg/dL (0.55-1.3)
[2021-02-26 18:05] LABS: BILIRUBIN,TOTAL 0.2 mg/dL (0.2-1); TOT PROT 7.3 g/dl (6.4-8.2)
[2021-02-26] MEDS: ATORVASTATIN CA 40 MG TABLET (FP) PO SCH (22:21)
[2021-02-26] MEDS: THIAMINE HCL 100 MG TABLET (FP) PO SCH (22:21)
[2021-02-26] MEDS: MELATONIN 5 MG TABLETS PO SCH (22:22)
[2021-02-27] MEDS ORDERED: methaDONE HCL 10 MG TABLET (FOR DETOX USE ONLY) ONE (09:31)
[2021-02-27] MEDS: FUROSEMIDE 40 MG TABLET (FP) PO SCH (10:43)
[2021-02-27] MEDS: METHOCARBAMOL 500 MG TABLET PO PRN (10:43)
[2021-02-27] MEDS: PRENATAL VITAMINS W/ FOLIC ACID TABLET (FP) PO SCH (10:44)
[2021-02-27] MEDS: NICOTINE 14 MG/24 HOURS TOPICAL PATCH TD SCH (10:47)
[2021-02-27] MEDS: RIVAROXABAN 20 MG TABLET PO SCH (16:50)
[2021-02-27] MEDS: MELATONIN 5 MG TABLETS PO SCH (22:15)
[2021-02-27] MEDS: THIAMINE HCL 100 MG TABLET (FP) PO SCH (22:15)
[2021-02-27] MEDS: ATORVASTATIN CA 40 MG TABLET (FP) PO SCH (22:15)
[2021-02-28 05:44] VITALS: BP 116/70; PULSE 60; TEMP 97.3
[2021-02-28] MEDS ORDERED: methaDONE HCL 10 MG TABLET (FOR DETOX USE ONLY) PO ONE (10:00)
[2021-03-02] MEDS ORDERED: methaDONE HCL 10 MG TABLET (FOR DETOX USE ONLY) PO ONE (10:00)
== END 2021-02-28 09:19 | disposition left against medical advice (07) | DRG 770 ==
LOC: YASAS 22:46 → Y6N 02-26 04:15
PROVIDERS: ADMIT Allergy & Immunology; ATTEND Allergy & Immunology
PROC: HZ2ZZZZ Detoxification Services for Substance Abuse Treatment (ICD-10-PCS; principal; 2021-02-26)
DX: F11.23 Opioid dependence with withdrawal (principal); F14.20 Cocaine dependence, uncomplicated; F17.210 Nicotine dependence, cigarettes, uncomplicated; D68.59 Other primary thrombophilia; Z86.718 Personal history of other venous thrombosis and embolism; Z86.711 Personal history of pulmonary embolism; Z79.01 Long term (current) use of anticoagulants
CPT/HCPCS: 36415; 80053; 85027; 86780; 87389; C9803; U0003; U0005

== ENCOUNTER 2022-06-19 12:54 | Inpatient (IN) | payer OTHER ==
[2022-06-19 15:19] VITALS: BMI 30.9
[2022-06-19] MEDS ORDERED: MAG HYDROX/AL HYDROX/SIMETH 30 ML UNIT-DOSE CUP PO PRN (16:19)
[2022-06-19] MEDS ORDERED: BENZOCAINE/MENTHOL (CHLORASEPTIC ) LOZENGE MM PRN (16:19)
[2022-06-19] MEDS ORDERED: IBUPROFEN 400 MG TABLET (FP) PO PRN (16:19)
[2022-06-19] MEDS ORDERED: MAGNESIUM HYDROX 2400MG/30ML ORAL SUSPENSION 30 ML CUP PO PRN (16:19)
[2022-06-19] MEDS ORDERED: POLYETHYLENE GLYCOL (HEALTHYLAX) 3350 17 GM PACKET PO PRN (16:19)
[2022-06-19] MEDS ORDERED: LOPERAMIDE HCL 2 MG CAPSULE PO PRN (16:19)
[2022-06-19] MEDS ORDERED: NALOXONE HCL (KLOXXADO) 8 MG SPRAY NS PRN (16:19)
[2022-06-19] MEDS ORDERED: DICYCLOMINE HCL 10 MG CAPSULE PO PRN (16:19)
[2022-06-19] MEDS ORDERED: ACETAMINOPHEN 325 MG TABLET (FP) PO PRN (16:19)
[2022-06-19] MEDS ORDERED: METHOCARBAMOL 500 MG TABLET PO PRN (16:19)
[2022-06-19] MEDS ORDERED: hydrOXYzine PAMOATE 25 MG CAPSULE (FP) PO PRN (16:19)
[2022-06-19] MEDS ORDERED: NICOTINE POLACRILEX 2 MG GUM BUC PRN (16:19)
[2022-06-19] MEDS ORDERED: BISMUTH SUBSALICYLATE 524 MG/30 ML PO PRN (16:19)
[2022-06-19] MEDS ORDERED: ONDANSETRON *ODT* 4 MG TABLET SL PRN (16:19)
[2022-06-19] MEDS ORDERED: NICOTINE 10 MG CARTRIDGE (INHALER) IH PRN (16:19)
[2022-06-19] MEDS: MELATONIN 5 MG TABLETS PO SCH (22:18)
[2022-06-19] MEDS: THIAMINE HCL 100 MG TABLET (FP) PO SCH (22:18)
[2022-06-19] MEDS: DOCUSATE SODIUM 100 MG CAPSULE (FP) PO SCH (22:19)
[2022-06-19] MEDS: IBUPROFEN 600 MG TABLET (FP) PO PRN (22:22)
[2022-06-20] MEDS ORDERED: diazePAM 5 MG TABLET PO ONE (00:45)
[2022-06-20] MEDS: ACETAMINOPHEN 325 MG TABLET (FP) PO PRN (00:58)
[2022-06-20] MEDS ORDERED: methaDONE HCL 10 MG TABLET (FOR DETOX USE ONLY) PO ONE ×2 (06:52→10:00)
[2022-06-20] MEDS: PRENATAL VITAMINS W/ FOLIC ACID TABLET (FP) PO SCH (10:27)
[2022-06-20] MEDS: diazePAM 5 MG TABLET PO PRN ×2 (10:28→22:12)
[2022-06-20 11:58] LABS: HEMATOCRIT 34.5 % (35.4-49); HEMOGLOBIN 11.4 GM/dL (11.7-16.9); MCH 28.2 pg (25.7-33.7); MEAN CELL VOLUME 85.7 fl (80-96); MEAN PLT VOLUME 8.3 fl (7.5-11.1); PLATELET COUNT 254 10^3/uL (134-434); RBC 4.03 M/mm3 (4.00-5.60); RDW 15.3 % (11.9-15.9); WHITE BLOOD COUNT 5.7 K/mm3 (4.0-10.0)
[2022-06-20 12:13] LABS: BLOOD UREA NITROGEN 13.3 mg/dL (7-18); CALCIUM 8.6 mg/dL (8.5-10.1)
[2022-06-20 12:16] LABS: CREATININE 1.2 mg/dL (0.55-1.3)
[2022-06-20 12:18] LABS: BILIRUBIN,TOTAL 0.7 mg/dL (0.2-1); TOT PROT 6.3 g/dl (6.4-8.2)
[2022-06-20] MEDS: MELATONIN 5 MG TABLETS PO SCH (22:11)
[2022-06-20] MEDS: THIAMINE HCL 100 MG TABLET (FP) PO SCH (22:11)
[2022-06-20] MEDS: DOCUSATE SODIUM 100 MG CAPSULE (FP) PO SCH (22:12)
[2022-06-21] MEDS: diazePAM 5 MG TABLET PO PRN ×2 (06:16→10:32)
[2022-06-21] MEDS: IBUPROFEN 600 MG TABLET (FP) PO PRN (06:17)
[2022-06-21] MEDS: PRENATAL VITAMINS W/ FOLIC ACID TABLET (FP) PO SCH (10:31)
[2022-06-21] MEDS: DOCUSATE SODIUM 100 MG CAPSULE (FP) PO SCH (22:23)
[2022-06-21] MEDS: THIAMINE HCL 100 MG TABLET (FP) PO SCH (22:23)
[2022-06-21] MEDS: MELATONIN 5 MG TABLETS PO SCH (22:23)
[2022-06-21 23:52] VITALS: RESP 18
[2022-06-22 08:59] VITALS: BP 140/71; PULSE 75; TEMP 98.2
[2022-06-22] MEDS: ACETAMINOPHEN 325 MG TABLET (FP) PO PRN (09:33)
[2022-06-22] MEDS: PRENATAL VITAMINS W/ FOLIC ACID TABLET (FP) PO SCH (09:33)
[2022-06-22] MEDS: diazePAM 5 MG TABLET PO PRN (09:33)
[2022-06-22] MEDS ORDERED: methaDONE HCL 10 MG TABLET (FOR DETOX USE ONLY) PO ONE (10:00)
[2022-06-24] MEDS ORDERED: methaDONE HCL 10 MG TABLET (FOR DETOX USE ONLY) PO ONE (10:00)
== END 2022-06-22 12:43 | disposition left against medical advice (07) | DRG 770 ==
LOC: YASAS 12:54 → Y3N 18:13
PROVIDERS: ADMIT Allergy & Immunology; ATTEND Surgery
PROC: HZ2ZZZZ Detoxification Services for Substance Abuse Treatment (ICD-10-PCS; principal; 2022-06-19)
DX: F11.23 Opioid dependence with withdrawal (principal); F10.230 Alcohol dependence with withdrawal, uncomplicated; F14.20 Cocaine dependence, uncomplicated; F17.210 Nicotine dependence, cigarettes, uncomplicated; R60.0 Localized edema; S00.83XA Contusion of other part of head, initial encounter; W19.XXXA Unspecified fall, initial encounter; Y92.239 Unspecified place in hospital as the place of occurrence of the external cause; Z86.69 Personal history of other diseases of the nervous system and sense organs; Z28.310 Unvaccinated for COVID-19; Z28.9 Immunization not carried out for unspecified reason
CPT/HCPCS: 36415; 80053; 85027; 86780; 87811; C9803-CS; U0003; U0005

== ENCOUNTER 2022-06-21 01:18 | Emergency (ER) | payer OTHER ==
[2022-06-21 01:25] VITALS: BP 137/87; PULSE 61; RESP 18; TEMP 98.1; BMI 29.0
[2022-06-21 02:51] LABS: PH,URINE 8.5 (5.0-8.0); URINE APPEARANCE CLEAR; URINE BILIRUBIN NEGATIVE (NEGATIVE); URINE COLOR YELLOW; URINE GLUCOSE (UA) NEGATIVE (NEGATIVE); URINE KETONE TRACE (NEGATIVE); URINE LEUK ESTERASE NEGATIVE (NEGATIVE); URINE NITRITE NEGATIVE (NEGATIVE); URINE PROTEIN TRACE (NEGATIVE)
[2022-06-21 02:53] LABS: BASO % 0.5 % (0-2.0); EOS % 1.2 % (0-4.5); HEMATOCRIT 37.8 % (35.4-49); HEMOGLOBIN 12.4 GM/dL (11.7-16.9); LYMPH % 14.1 % (8-40); MCHC 32.8 g/dl (32.0-35.9); MEAN CELL VOLUME 85.5 fl (80-96); MEAN PLT VOLUME 7.9 fl (7.5-11.1); MONO % 5.8 % (3.8-10.2); NEUT % 78.4 % (42.8-82.8); PLATELET COUNT 270 10^3/uL (134-434); RBC 4.42 M/mm3 (4.00-5.60); RDW 15.2 % (11.9-15.9); WHITE BLOOD COUNT 7.1 K/mm3 (4.0-10.0)
[2022-06-21 03:13] LABS: CALCIUM 8.9 mg/dL (8.5-10.1)
[2022-06-21 03:14] LABS: BLOOD UREA NITROGEN 11.8 mg/dL (7-18)
[2022-06-21 03:17] LABS: CREATININE 1.4 mg/dL (0.55-1.3)
[2022-06-21 03:19] LABS: BILIRUBIN,TOTAL 0.7 mg/dL (0.2-1); TOT PROT 7.2 g/dl (6.4-8.2)
== END 2022-06-21 05:43 | disposition home or self-care (01) ==
LOC: JER 01:18
DX: S00.83XA Contusion of other part of head, initial encounter (principal); W01.0XXA Fall on same level from slipping, tripping and stumbling without subsequent striking against object, initial encounter
CPT/HCPCS: 36415; 70450-TC; 71045-TC-FY; 72125-TC; 80053; 81003; 84484; 85025; 87086; 93005; 93010; 99285-25